=== PATIENT | female | born 1965 | race Caucasian/White ===

== ENCOUNTER 2017-12-12 05:28 | Day surgery (SDC) | payer OTHER ==
[2017-12-12] MEDS ORDERED: fentaNYL 100 MCG/2 ML SDV IV ONE ×4 (05:29→06:32)
[2017-12-12] MEDS ORDERED: Midazolam 1 MG/ML 2 ML SDV IV ONE ×7 (05:29→06:30)
[2017-12-12] MEDS ORDERED: Dextrose 5%-0.45% NaCl 1,000 ML IV SCH (06:00)
[2017-12-12] MEDS ORDERED: Sodium Chloride 0.9% 10 ML Syringe FLUSH PRN (06:00)
[2017-12-12] MEDS ORDERED: fentaNYL 100 MCG/2 ML SDV ONE (06:12)
[2017-12-12] MEDS ORDERED: Midazolam 1 MG/ML 2 ML SDV ONE (06:12)
--- NOTE | 2017-12-12 07:14 | OR ---
DATE: 12/12/2017 PROCEDURE PERFORMED: Total colonoscopy and multiple pinch biopsies. INSTRUMENT USED: PCF-H180 AL Olympus video colonoscope. PREMEDICATIONS: Fentanyl 125 mcg intravenous, Versed 4 mg intravenous. 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 INDICATION: The patient with positive FIT and previous microscopic colitis. Colonoscopic examination is done for detection of any polypoid lesions and removal, biopsies to be obtained for microscopic colitis. Endoscopic hemostasis therapy if needed. Initial rectal exam was unremarkable. Rigid anoscopy was normal. DESCRIPTION OF PROCEDURE: The colonoscope was passed with ease up to the ileocecal area. Photographs were taken of the normal-appearing cecum, identified by appendiceal orifice and double-bulged ileocecal folds. No bleeding was noted from any of the visualized areas at the commencement of the examination. The bowel preparation was found to be adequate. No stricture. No vascular ectasia. No large or isolated ulcerations seen. No evidence of diffuse inflammatory bowel disease in the form of friability, contact bleeding, or ulcerations. No polyp or tumor mass identified. Probing the proximal sides of folds and flexures, using adequate distention and clearing up the stool material, withdrawal of the scope was made. Multiple pinch biopsies were taken from the normal-appearing mucosa of the transverse colon, mid descending colon, and rectosigmoid and sent for any histopathologic evidence of microscopic colitis. No bleeding was noted from any of the visualized areas at the completion of examination. IMPRESSION: Normal study. The patient tolerated the procedure well. [facility] /[id number]
[2017-12-12 09:01] VITALS: BP 105/57
== END 2017-12-12 08:45 | disposition home or self-care (01) ==
LOC: DL.ENDO 05:28
PROVIDERS: ATTEND Internal Medicine Gastroenterology
DX: R19.5 Other fecal abnormalities (principal); E66.09 Other obesity due to excess calories; F41.1 Generalized anxiety disorder; F32.9 Major depressive disorder, single episode, unspecified; K21.9 Gastro-esophageal reflux disease without esophagitis; Z87.19 Personal history of other diseases of the digestive system
CPT/HCPCS: 45380; J2250; J3010; J7042

== ENCOUNTER 2024-02-29 17:27 | Inpatient (IN) | payer BC, OTHER ==
[2024-02-29] MEDS: Albuterol/Ipratropium 3.0-0.5 MG/3 ML Neb Soln NEB ONE (18:08)
[2024-02-29 18:14] LABS: BASOPHILS PERCENT AUTO 0.2 % (0.0-1.0); HEMATOCRIT 35.6 % (37.0-47.0); HEMOGLOBIN 11.4 g/dL (12.0-16.0); MEAN CORPUSCULAR HEMOGLOBIN 30.2 pg (27.0-34.0); MEAN CORPUSCULAR VOLUME 94.4 fL (80-100); MONOCYTES PERCENT AUTO 11.7 % (2-8); NEUTROPHILS PERCENT AUTO 75.1 % (42.2-75.2); PLATELET COUNT,PLT 249 10^3/uL (150-450); RED BLOOD CELL COUNT 3.77 10^6/uL (4.2-5.4); WHITE BLOOD CELL COUNT,WBC 9.4 10^3/uL (5.0-10.0)
[2024-02-29 18:33] LABS: B-TYPE NATRIURETIC PEPTIDE,BNP 165 pg/ml (0-100)
[2024-02-29 18:34] LABS: ALANINE AMINOTRANSFERASE,ALT 31 U/L (14-59); ALBUMIN 3.4 g/dL (3.4-5.0); ALKALINE PHOSPHATASE 82 U/L (46-116); ANION GAP 14.6 mEq/L (7-13); ASPARTATE AMNIOTRANSFERASE,AST 49 U/L (15-37); BILIRUBIN TOTAL 0.4 mg/dL (0.2-1.0); BLOOD UREA NITROGEN,BUN 11 mg/dL (7-18); BUN/CREATININE RATIO 14.1 (No establ ref range); CALCIUM 8.7 mg/dL (8.5-10.1); CARBON DIOXIDE,CO2 26 mmol/L (21-32); CHLORIDE,CL 101 mmol/L (98-107); CREATININE 0.78 mg/dL (0.55-1.02); GLUCOSE RANDOM 101 mg/dL (70-99); POTASSIUM,K 3.6 mmol/L (3.5-5.1); PROTEIN TOTAL,TP 6.9 g/dL (6.4-8.2); SODIUM,NA 138 mmol/L (136-145)
[2024-02-29 18:35] LABS: ESTIMATED GFR 89 mL/min (>=60)
[2024-02-29 18:37] LABS: LACTIC ACID 1.1 mmol/L (0.4-2.0)
[2024-02-29] MEDS: cefTRIAXone 2 GM in Sodium Chloride 0.9% 100 ML IV ONE (19:56)
[2024-02-29] MEDS: Azithromycin 500 MG in Sodium Chloride 0.9% 250 ML IV ONE (19:56)
[2024-02-29] MEDS ORDERED: Sodium Chloride 0.9% 1,000 ML IV SCH (22:00)
[2024-02-29] MEDS: Albuterol/Ipratropium 3.0-0.5 MG/3 ML Neb Soln NEB SCH (22:40)
[2024-02-29] MEDS: methylPREDNISolone Sodium Succinate 40 MG/1 ML SDV IVPUSH SCH (22:40)
[2024-02-29] MEDS: Heparin Sodium 5,000 Units/ML Vial SUBCUT SCH (22:40)
[2024-02-29] MEDS: Temazepam 15 MG Cap PO ONE (23:11)
[2024-02-29] MEDS: Nicotine 21 MG/24 Hr Patch TRDERM SCH (23:11)
[2024-03-01] MEDS: Omeprazole 20 MG Cap.CR PO SCH (05:13)
[2024-03-01] MEDS: methylPREDNISolone Sodium Succinate 40 MG/1 ML SDV IVPUSH SCH (05:13)
[2024-03-01] MEDS: Citalopram 20 MG Tab PO SCH (08:17)
[2024-03-01] MEDS: Iopamidol 755 Mg/ML 100 ML Bottle IVPUSH ONE (10:26)
[2024-03-01] MEDS ORDERED: Non-Formulary Medication 1 Each (Dicyclomine [Bentyl] 20 MG Tablet) PO SCH (11:45)
[2024-03-01] MEDS: guaiFENesin 600 MG Tab.ER PO SCH (12:41)
[2024-03-01] MEDS: Gabapentin 300 MG Cap PO SCH (12:51)
[2024-03-01] MEDS: DULoxetine 30 MG Cap PO SCH ×2 (12:51→20:57)
[2024-03-01] MEDS: LORazepam 0.5 MG Tab PO SCH (12:51)
[2024-03-01] MEDS: lamoTRIgine 100 MG Tab PO SCH (20:56)
[2024-03-01] MEDS: Loperamide 2 MG Cap PO PRN (20:56)
[2024-03-01] MEDS: Rosuvastatin 10 MG Tab PO SCH (20:56)
[2024-03-01] MEDS: Amitriptyline 25 MG Tab PO SCH (20:56)
[2024-03-01] MEDS: cefTRIAXone 1 GM Vial IV SCH (20:57)
[2024-03-01] MEDS: Azithromycin 500 MG in Sodium Chloride 0.9% 250 ML IV SCH (20:58)
[2024-03-01] MEDS: Cyclobenzaprine 10 MG Tab PO SCH (20:58)
[2024-03-01] MEDS: Heparin Sodium 5,000 Units/ML Vial SUBCUT SCH (20:59)
[2024-03-02] MEDS: Pantoprazole 40 MG Tab.CR PO SCH (09:07)
[2024-03-02] MEDS: Albuterol/Ipratropium 3.0-0.5 MG/3 ML Neb Soln NEB PRN (10:06)
[2024-03-02 11:38] VITALS: BP 129/76; PULSE 90
[2024-03-02] MEDS: Pneumococcal 20-Valent Conjug 0.5 ML Syringe IM ONE (12:25)
[2024-03-02] MEDS: FLU (Fluarix Triv) TS24-25(6MOS UP)/PF 45 MCG/0.5 ML Syringe IM ONE (12:29)
== END 2024-03-02 14:30 | disposition home or self-care (01) | DRG 139 ==
LOC: DL.ED 17:27 → DL.MS 19:16
PROVIDERS: ADMIT Internal Medicine; ATTEND Internal Medicine
DX: J18.9 Pneumonia, unspecified organism (principal); J96.01 Acute respiratory failure with hypoxia; J44.0 Chronic obstructive pulmonary disease with (acute) lower respiratory infection; F17.210 Nicotine dependence, cigarettes, uncomplicated; F32.A Depression, unspecified; E78.5 Hyperlipidemia, unspecified; E66.9 Obesity, unspecified; Z66 Do not resuscitate; K21.9 Gastro-esophageal reflux disease without esophagitis; F15.90 Other stimulant use, unspecified, uncomplicated; J47.9 Bronchiectasis, uncomplicated; Z79.899 Other long term (current) drug therapy; Z87.442 Personal history of urinary calculi; Z90.710 Acquired absence of both cervix and uterus; Z98.890 Other specified postprocedural states
CPT/HCPCS: 36415; 71046; 71275; 80053; 83605; 83880; 85025; 87040; 87070; 87205; 87428-QW; 90656; 90677; 94618; 94640; 99223; 99232; 99239; 99284; 99285; A9270-GY; G0008; G0009; J0456; J0696; J1644; J2919; J3490; J7050; J7620-GY; Q9967